=== PATIENT | female | born 1985 | race Caucasian/White ===

== ENCOUNTER 2017-03-05 19:45 | Outpatient (CLI) | payer BC ==
[2017-03-05 20:16] VITALS: BP 108/61; PULSE 67; RESP 18; TEMP 97
--- NOTE | 2017-03-06 08:42 | P.MSEPDOC ---
Presenting Problems - Arrival Data Date of Arrival on Unit: 03/05/17 Time of Arrival on Unit: 19:15 Mode of Transport: Ambulatory - Complaint OB-Reason for Admission/Chief Complaint: Vaginal Bleeding Comment: vaginal bleeding, back pain and cramping Medical History - Information : 3 Para: 2 Term: 2 : 2 Abortions: Spontaneous or Elective: 0 Number of Living Children: 2 - Gestational Age Expected Date of Delivery: 07/19/17 Gestational Age by OM (wks/days): 20 Weeks and 5 Days - History Complications: GDM Review of Systems - Review of Systems Constitutional: No problems Breast: No problems ENT: No problems Cardiovascular: No problems Respiratory: No problems Gastrointestinal: No problems Genitourinary: No problems Musculoskeletal: No problems Neurological: No problems Skin: No problems Vital Signs - Temperature Temperature: 97.0 F Temperature Source: Temporal Artery Scan - Pulse Right Brachial Pulse Rate: 67 Pulse Assessment Method: Automatic Cuff - Respirations Respiratory Rate: 18 Oxygen Delivery Method: Room Air - Blood Pressure Right Arm Blood Pressure: 108/61 Blood Pressure Mean: 76 Blood Pressure Source: Automatic Cuff Medical Screen Scoring (Pre) - Cervical Exam Dilation: Exam Deferred Effacement: Exam Deferred Membranes: Intact - Uterine Contractions Frequency: N/A Duration: N/A Intensity: N/A - Maternal Vital Signs Maternal Temperature: N/A Maternal Blood Pressure: N/A Signs of Preeclampsia: N/A Maternal Respirations: N/A - Maternal Trauma Maternal Trauma: N/A - Assessment Baseline FHR: 140 Position: N/A Station: N/A - Total Score Total Score (Pre): 0 - Level of Risk Level of Risk: Low (0-5) Physician Notification (Pre) - Physician Notified Physician Notified Date: 03/05/17 Physician Notified Time: 19:41 Physician/Practitioner Notifed:: Dr. Zhao Spoke With: Dr. Zhao New Order Received: Yes - Notification Comment Comment: perform speculum exam and cervical exam if 1st exam ok Medical Screen Scoring (Post) - Cervical Exam Dilation: 0 cm = 0 Membranes: Intact - Uterine Contractions Frequency: N/A Duration: N/A Intensity: N/A - Maternal Vital Signs Maternal Temperature: N/A Maternal Blood Pressure: N/A Signs of Preeclampsia: N/A Maternal Respirations: N/A - Maternal Trauma Maternal Trauma: N/A - Assessment Heart Rate: 140 - Total Score Total Score (Post): 0 - Post Treatment Level of Risk Post Treatment Level of Risk: Low (0-5) Physician Notification (Post) - Physician Notified Physician Notified Date: 03/05/17 Physician Notified Time: 19:57 Physician/Practitioner Notified:: Dr. Zhao Spoke With: Dr. Zhao New Order Received: Yes - Notification Comment Comment: discharge home Disposition - Disposition OB Disposition: Discharge to home, Written follow up instructions reviewed Discharge Date: 03/05/17 Discharge Time: 20:10 I agree with the RN Medical Screening Exam: Yes Risk & Benefit of care provided described in d/c instruction: Yes Diagnosis: 20 WEEKS GESTATION OF
== END 2017-03-05 20:10 | disposition home or self-care (01) ==
LOC: FBPOP 19:45
PROVIDERS: ATTEND Obstetrics & Gynecology
DX: O46.92 Antepartum hemorrhage, unspecified, second trimester (principal); Z3A.20 20 weeks gestation of pregnancy
CPT/HCPCS: 99213

== ENCOUNTER 2017-04-18 16:22 | Outpatient (CLI) | payer BC ==
[2017-04-18 16:50] LABS: Glucose,Whole Blood 88 mg/dL (75-99)
[2017-04-18 17:02] VITALS: BP 116/62; PULSE 71; TEMP 96.8
--- NOTE | 2017-04-18 19:19 | P.MSEPDOC ---
Presenting Problems - Arrival Data Date of Arrival on Unit: 04/18/17 Time of Arrival on Unit: 16:25 Mode of Transport: Ambulatory - Complaint OB-Reason for Admission/Chief Complaint: Decreased Movement, Other Comment: pt reports feeling cramping on and off Medical History - Information : 3 Para: 2 Term: 2 : 2 Abortions: Spontaneous or Elective: 0 Number of Living Children: 2 - Gestational Age Gestational Age by MO (wks/days): 26 Weeks and 6 Days - History Complications: GDM Comment: random accu check 88 Review of Systems - Review of Systems Constitutional: No problems Breast: No problems ENT: No problems Cardiovascular: No problems Respiratory: No problems Gastrointestinal: No problems Genitourinary: No problems Musculoskeletal: No problems Neurological: No problems Skin: No problems Vital Signs - Temperature Temperature: 96.8 F Temperature Source: Temporal Artery Scan - Pulse Right Brachial Pulse Rate: 71 Pulse Assessment Method: Automatic Cuff - Respirations Oxygen Delivery Method: Room Air - Blood Pressure Right Arm Blood Pressure: 116/62 Blood Pressure Mean: 80 Blood Pressure Source: Automatic Cuff Medical Screen Scoring (Pre) - Cervical Exam Dilation: Exam Deferred Effacement: Exam Deferred Membranes: Intact - Uterine Contractions Frequency: N/A Duration: N/A Intensity: N/A - Maternal Vital Signs Maternal Temperature: N/A Maternal Blood Pressure: N/A Signs of Preeclampsia: N/A Maternal Respirations: N/A - Maternal Trauma Maternal Trauma: N/A - Assessment Baseline FHR: 135 Heart Rate - NICHD Category: Category I (Normal) = 0 Position: N/A Station: N/A - Total Score Total Score (Pre): 0 - Level of Risk Level of Risk: Low (0-5) Physician Notification (Pre) - Physician Notified Physician Notified Date: 04/18/17 Physician Notified Time: 16:49 Physician/Practitioner Notifed:: Dr clifton Spoke With: Dr clifton New Order Received: Yes (dc pt home) Disposition - Disposition OB Disposition: Discharge to home, Written follow up instructions reviewed Discharge Date: 04/18/17 Discharge Time: 17:02 I agree with the RN Medical Screening Exam: Yes Risk & Benefit of care provided described in d/c instruction: Yes Diagnosis: DECREASED MOVEMENTS, SECOND TRIMESTER, FETUS 1
== END 2017-04-18 17:08 | disposition home or self-care (01) ==
LOC: FBPOP 16:22
PROVIDERS: ATTEND Obstetrics & Gynecology
DX: O36.8121 Decreased fetal movements, second trimester, fetus 1 (principal); Z3A.26 26 weeks gestation of pregnancy
CPT/HCPCS: 99213

== ENCOUNTER 2017-07-15 06:00 | Inpatient (IN) | payer BC ==
--- NOTE | 2017-07-15 06:50 | P.HPOB ---
History of Present Illness H&P Date: 07/15/17 Chief Complaint: Induction of labor secondary to gestational diabetes This patient is a pleasant 31-year-old 3 para 2 female estimated date of confinement 07/19/2017 estimated gestational age 39-3/7 weeks who presents to labor and delivery for induction secondary to diet-controlled gestational diabetes. Patient's been seen by maternal medicine throughout the for glucose regulation which has been very good. She now has a favorable cervix and presents for delivery. care was otherwise complicated by a circumvallate placenta and marginal cord insertion Review of Systems Constitutional: Denies chills, Denies fever Gastrointestinal: Reports heartburn Genitourinary: Reports Menstruation: Reports amenorrhea Past Medical History Additional Past Medical History / Comment(s): Gestational diabetes. History of Any Multi-Drug Resistant Organisms: None Reported Past Surgical History: Cholecystectomy, Orthopedic Surgery Past Anesthesia/Blood Transfusion Reactions: No Reported Reaction Smoking Status: Never smoker Past Alcohol Use History: None Reported Past Drug Use History: None Reported Medications and Allergies Home Medications Medication Instructions Recorded Confirmed Type Pnv,Calcium 72/Iron/Folic Acid 1 tab PO DAILY 03/05/17 05/17/17 History [ Plus Tablet] Allergies Allergy/AdvReac Type Severity Reaction Status Date / Time amoxicillin Allergy Rash/Hives Verified 05/17/17 18:03 Exam - OBG Physical Exam Abdomen: bowel sounds normal, no diffuse tenderness, no bruit present, no guarding noted, no hepatomegaly, no splenomegaly, no mass Vulva: both: normal Cervix: no lesion (Cervix in the office was 2 cm dilated and soft.), no discharge Uterus: normal size Results blood work shows she is O positive, rubella immune, RPR nonreactive, HIV nonreactive, hepatitis B negative, group B strep was negative, ultrasounds have been normal, she's had a level III ultrasound and cardiac echo. Assessment and Plan Assessment: This is a pleasant 31-year-old 3 para 2 female 39-3/7 weeks gestation who is admitted to labor and delivery for induction of labor secondary to gestational diabetes and circumvallate placenta. Plan is induction of labor and anticipate vaginal delivery. (1) Gestational diabetes mellitus (GDM) affecting third Current Visit: Yes Status: Acute Code(s): O24.419 - GESTATIONAL DIABETES MELLITUS IN , UNSP CONTROL; O09.40 - SUPERVISION OF W GRAND MULTIPARITY, UNSP TRIMESTER SNOMED Code(s): 68539522884061 (2) Circumvallate placenta Current Visit: Yes Status: Acute Code(s): O43.119 - CIRCUMVALLATE PLACENTA, UNSPECIFIED TRIMESTER SNOMED Code(s): 2756834
[2017-07-15 06:53] LABS: Glucose,Whole Blood 75 mg/dL (75-99)
[2017-07-15] MEDS ORDERED: OXYTOCIN 10 UNIT/ML 1 ML VIAL IM PRN (06:54)
[2017-07-15] MEDS ORDERED: METHYLERGONOVINE 0.2 MG/ML 1 ML AMP IM PRN (06:54)
[2017-07-15] MEDS ORDERED: CARBOPROST TROMETHAMINE 250 MCG/ML 1 ML AMP IM PRN (06:54)
[2017-07-15] MEDS ORDERED: OXYTOCIN 20 UNITS/1000 ML NS 1,000 ML IV SCH ×2 (06:54→11:20)
[2017-07-15] MEDS ORDERED: TERBUTALINE 1 MG/ML VIAL SQ PRN (06:54)
[2017-07-15] MEDS ORDERED: LIDOCAINE 1% (PF) 10 MG/ML (30 ML SDV) SQ PRN (06:54)
[2017-07-15] MEDS: LACTATED RINGERS 1,000 ML IV SCH ×2 (07:00→09:09)
[2017-07-15 07:20] VITALS: BMI 26.9
[2017-07-15] MEDS ORDERED: BUTORPHANOL 1 MG/ML 1 ML VIAL IV PRN (07:20)
[2017-07-15 07:35] LABS: Basophils % (A) 0 %; Eosinophils % (A) 0 %; HCT 33.5 % (34.0-46.0); HGB 10.9 gm/dL (11.4-16.0); Lymphocytes % (A) 17 %; MCH 29.9 pg (25.0-35.0); MCHC 32.5 g/dL (31.0-37.0); MCV 91.8 fL (80.0-100.0); Mean Platelet Volume 8.3; Monocytes # (A) 0.3 k/uL (0-1.0); Monocytes % (A) 6 %; Neutrophils # (A) 4.5 k/uL (1.3-7.7); Neutrophils % (A) 75 %; Platelet Count 155 k/uL (150-450); RBC 3.64 m/uL (3.80-5.40); RDW 14.8 % (11.5-15.5)
[2017-07-15] MEDS ORDERED: fentaNYL (PF) 50 MCG/ML 5 ML AMP ONE (09:10)
[2017-07-15] MEDS ORDERED: SODIUM CHLORIDE 0.9% 100 ML BAG ONE (09:10)
[2017-07-15] MEDS ORDERED: BUPIVACAINE (PF) 0.25% 30 ML VIAL ONE (09:10)
[2017-07-15] MEDS ORDERED: BUPIVACAINE (PF) 0.25% 25 ML, fentaNYL (PF) 200 MCG in SODIUM CHLORIDE 0.9% 71 ML EPIDURAL ONE (09:27)
[2017-07-15] MEDS ORDERED: Acetaminophen-Codeine 300-30mg TAB PO PRN ×2 (11:20)
[2017-07-15] MEDS ORDERED: SIMETHICONE 80 MG CHEWABLE PO PRN (11:20)
[2017-07-15] MEDS ORDERED: diphenhydrAMINE 50 MG/ML 1 ML VIAL IVP PRN (11:20)
[2017-07-15] MEDS ORDERED: LANOLIN CREAM 5 GM TUBE TOPICAL PRN (11:20)
[2017-07-15] MEDS ORDERED: ZOLPIDEM 5 MG TAB PO PRN (11:20)
[2017-07-15] MEDS ORDERED: BISACODYL 10 MG SUPP RECTAL PRN (11:20)
[2017-07-15] MEDS ORDERED: HYDROCORTISONE 2.5% RECTAL CREAM 30 GM TUBE RECTAL PRN (11:20)
[2017-07-15] MEDS ORDERED: BENZOCAINE/MENTHOL SPRAY 1 GM/SPRAY AEROSOL TOPICAL PRN (11:20)
[2017-07-15] MEDS ORDERED: diphenhydrAMINE 25 MG CAP PO PRN (11:20)
[2017-07-15] MEDS ORDERED: ACETAMINOPHEN TAB 325 MG TAB PO PRN (11:20)
[2017-07-15] MEDS ORDERED: WITCH HAZEL 1 EACH MED..PAD TOPICAL PRN (11:20)
--- NOTE | 2017-07-15 12:32 | P.PROBDLV ---
Vaginal Delivery Note - . Vaginal Delivery Note: Normal vaginal delivery viable male infant Apgars 8 and 9 delivery time is 1111 hrs. Please see dictated H&P for intimate details of this patient's admission. Brief summary this is a pleasant 31-year-old 3 para 2 female 39-3/7 weeks gestation admitted to labor and delivery for induction secondary to gestational diabetes, circumvallate placenta and marginal cord insertion. On admission patient is 2-3 cm dilated is artificial rupture membranes for clear fluid. Labor is induced with Pitocin and a progresses. She does get an epidural for pain control with good relief. Patient's labor progresses quickly and she pushes the head to the perineum. Posterior perineum is supported we have controlled delivery of 's head over the perineum. Mouth and nares are bulb suctioned. There is a double nuchal cord which is loose and reduced. We then have delivery the anterior posterior shoulder with gentle downward traction. This is a vigorous viable male infant Apgars are 8 and 9 delivery time is 1111 hrs. After delivery of the the umbilical cord is doubly clamped and cut appears to be trivascular. The placenta is then spontaneously delivered intact. Does appear to have marginal insertion and circumvallate presentation. Uterus firms up well and estimated blood loss is 150 mL. There is a second-degree midline laceration which is repaired with 3-0 Vicryl usual fashion good reapproximation is noted. Infant and mother are stable in delivery room. All counts are correct 3. There are no complications.
[2017-07-15] MEDS: SENNOSIDES-DOCUSATE SODIUM 1 EACH TAB PO SCH (13:26)
[2017-07-16] MEDS: SENNOSIDES-DOCUSATE SODIUM 1 EACH TAB PO SCH ×3 (01:27→20:06)
[2017-07-16 01:32] VITALS: RESP 16
--- NOTE | 2017-07-16 06:58 | P.PNOBGVD ---
Subjective - Subjective Patient reports: Reports appetite normal, Reports voiding normally, Reports pain well controlled, Reports ambulating normally : doing well Objective - Latest Vital Signs Latest vital signs: Vital Signs Temp Pulse Pulse Resp BP Pulse Ox 07/16/17 00:00 98.5 F 76 16 110/67 97 07/15/17 20:00 98.0 F 78 16 115/69 97 07/15/17 16:00 98.3 F 95 18 114/68 07/15/17 13:45 98.1 F 102 H 18 101/53 07/15/17 13:30 97.7 F 100 18 91/60 07/15/17 13:00 110 H 100/58 07/15/17 12:30 88 18 105/62 07/15/17 12:15 78 111/55 07/15/17 12:00 98.0 F 71 18 102/53 07/15/17 11:45 72 110/55 07/15/17 11:30 98.2 F 78 18 113/57 Intake and Output 07/15/17 07/15/17 07/16/17 14:59 22:59 06:59 Intake Total 12.9 Output Total 550 Balance -537.1 Intake: Intake, IV Titration 12.9 Amount Oxytocin 20 Units/1000 ml 12.9 Ns 1,000 ml @ 1 MILLIUNIT/MIN 3 mls/hr IV .Q24H JOSUE Rx#:[id number] Output: Urine 400 Estimated Blood Loss 150 Other: # Voids 1 1 1 - Exam Lungs: bilateral: normal Chest: Normal S1, Normal S2 Extremities: Present: normal Abdomen: Present: normal appearance, soft Uterus: Present: normal, firm - Labs Labs: Abnormal Lab Results - Last 24 Hours (Table) 07/15/17 Range/Units 07:14 RBC 3.64 L (3.80-5.40) m/uL Hgb 10.9 L (11.4-16.0) gm/dL Hct 33.5 L (34.0-46.0) % Assessment and Plan Assessment: day #1. Patient is resting without complaints. Vital signs are stable she is afebrile. Uterus is firm nontender she's having normal lochia. My impression is a normal course. Plan is to continue routine care and most likely discharge home tomorrow. (1) Gestational diabetes mellitus (GDM) affecting third Current Visit: Yes Status: Acute Code(s): O24.419 - GESTATIONAL DIABETES MELLITUS IN , UNSP CONTROL; O09.40 - SUPERVISION OF W GRAND MULTIPARITY, UNSP TRIMESTER SNOMED Code(s): 72580936363366 (2) Circumvallate placenta Current Visit: Yes Status: Acute Code(s): O43.119 - CIRCUMVALLATE PLACENTA, UNSPECIFIED TRIMESTER SNOMED Code(s): 4369945
[2017-07-16] MEDS: IBUPROFEN 600 MG TAB PO PRN (15:54)
--- NOTE | 2017-07-16 17:08 | P.PN ---
Progress Note - Text Progress Note Date: 07/16/17 I was called about pt in regards to some shortness of breath. First noticed this morning, however when I came to see her at lunchtime was talking on the phone in no apparent distress. Has had on/off since, noticed more apparently with exertion. I came to see pt. Lungs are clear. Blood pressure excellent and no tachycardia. Pulse ox is 100% at rest and with exertion. Pt appears in no distress and breathing does not appear labored. I do not think she has any evidence of significant cardio/pulmonary compromise. No evidence of PE/DVT. Will continue to observe and do further testing/consultation if necessary.
[2017-07-17] MEDS: IBUPROFEN 600 MG TAB PO PRN ×2 (04:32→15:22)
--- NOTE | 2017-07-17 06:22 | P.PNOBGVD ---
Subjective - Subjective Patient reports: Reports appetite normal, Reports voiding normally, Reports pain well controlled, Reports ambulating normally [place]: doing well Objective - Latest Vital Signs Latest vital signs: Vital Signs Temp Pulse Pulse Resp BP Pulse Ox 07/17/17 00:00 98.1 F 58 L 16 105/60 07/16/17 16:00 98.0 F 78 16 117/77 100 07/16/17 08:00 98.2 F 83 16 107/66 Intake and Output 07/16/17 07/16/17 07/17/17 14:59 22:59 06:59 Other: # Voids 1 1 1 - Exam Lungs: bilateral: normal Chest: Normal S1, Normal S2 Extremities: Present: normal Abdomen: Present: normal appearance, soft Uterus: Present: normal, firm Assessment and Plan Assessment: Patient is resting without new complaints. She states that the chest discomfort she had yesterday is gone. Vital signs are stable she's afebrile. Uterus is firm nontender she's having normal lochia. My impression is normal course. Plan is to continue routine care and discharge home later today. (1) Gestational diabetes mellitus (GDM) affecting third Current Visit: Yes Status: Acute Code(s): O24.419 - GESTATIONAL DIABETES MELLITUS IN , UNSP CONTROL; O09.40 - SUPERVISION OF W GRAND MULTIPARITY, UNSP TRIMESTER SNOMED Code(s): 82502440898951 (2) Circumvallate placenta Current Visit: Yes Status: Acute Code(s): O43.119 - CIRCUMVALLATE PLACENTA, UNSPECIFIED TRIMESTER SNOMED Code(s): 1342766
--- NOTE | 2017-07-17 06:25 | P.DS ---
Providers Date of admission: 07/15/17 06:23 Expected date of discharge: 07/17/17 Attending physician: Pancho Taylor Primary care physician: Kendall Phoenix - Discharge Diagnosis(es) (1) Gestational diabetes mellitus (GDM) affecting third Current Visit: Yes Status: Acute (2) Circumvallate placenta Current Visit: Yes Status: Acute Hospital Course: Please see dictated H&P for intimate details of this patient's admission. Brief summary this is a pleasant 31-year-old 3 para 2 female 39-3/7 weeks gestation admitted to labor and delivery for induction of labor secondary to gestational diabetes. Patient undergoes uncomplicated induction of labor quickly goes on to have a vaginal delivery viable male . Procedures: Induction of labor and normal vaginal delivery. Patient Condition at Discharge: Good Plan - Discharge Summary New Discharge Prescriptions: New Acetaminophen-Codeine 300-30mg [Tylenol w/codeine #3] 1 each PO Q4HR PRN #20 tab PRN Reason: Mild Pain exceeding Tylenol Ibuprofen [Motrin] 600 mg PO Q6HR PRN #40 tab PRN Reason: Mild Pain Or Fever >= 100.5 No Action Pnv,Calcium 72/Iron/Folic Acid [ Plus Tablet] 1 tab PO DAILY Discharge Medication List Pnv,Calcium 72/Iron/Folic Acid [ Plus Tablet] 1 tab PO DAILY 03/05/17 [ History] Acetaminophen-Codeine 300-30mg [Tylenol w/codeine #3] 1 each PO Q4HR PRN #20 tab 07/16/17 [Rx] Ibuprofen [Motrin] 600 mg PO Q6HR PRN #40 tab 07/16/17 [Rx] Follow up Appointment(s)/Referral(s): Pancho Taylor MD [STAFF PHYSICIAN] - 08/22/17 10:45 am Patient Instructions/Handouts: Vaginal Delivery (DC) Activity/Diet/Wound Care/Special Instructions: No intercourse or anything per vagina for 6 weeks. Please call if any fever, chills, excessive vaginal bleeding, and/or abdominal pain. Discharge Disposition: HOME SELF-CARE
[2017-07-17] MEDS: SENNOSIDES-DOCUSATE SODIUM 1 EACH TAB PO SCH (07:58)
[2017-07-17 16:48] VITALS: BP 115/65; PULSE 62; TEMP 97.2
== END 2017-07-17 17:00 | disposition home or self-care (01) | DRG 775 ==
LOC: 4FBP 06:23
PROVIDERS: ADMIT Obstetrics & Gynecology; ATTEND Obstetrics & Gynecology
PROC: 10907ZC Drainage of Amniotic Fluid, Therapeutic from Products of Conception, Via Natural or Artificial Opening (ICD-10-PCS; principal; 2017-07-15)
PROC: 10E0XZZ Delivery of Products of Conception, External Approach (ICD-10-PCS; principal; 2017-07-15)
PROC: 3E0R3BZ Introduction of Anesthetic Agent into Spinal Canal, Percutaneous Approach (ICD-10-PCS; principal; 2017-07-15)
PROC: 3E033VJ Introduction of Other Hormone into Peripheral Vein, Percutaneous Approach (ICD-10-PCS; principal; 2017-07-15)
PROC: 00HU33Z Insertion of Infusion Device into Spinal Canal, Percutaneous Approach (ICD-10-PCS; principal; 2017-07-15)
PROC: 0KQM0ZZ Repair Perineum Muscle, Open Approach (ICD-10-PCS; principal; 2017-07-15)
DX: O24.420 Gestational diabetes mellitus in childbirth, diet controlled (principal); O43.113 Circumvallate placenta, third trimester; Z37.0 Single live birth; O69.81X0 Labor and delivery complicated by cord around neck, without compression, not applicable or unspecified; O70.1 Second degree perineal laceration during delivery; Z3A.39 39 weeks gestation of pregnancy; Z88.1 Allergy status to other antibiotic agents
CPT/HCPCS: 85025; 88307

== ENCOUNTER → 2017-12-04 | Outpatient (CLI) | payer BC | END | disposition home or self-care (01) | LOC: LABWHC1 15:39 | PROVIDERS: ATTEND Otolaryngology | DX: J30.89 Other allergic rhinitis (principal) | CPT/HCPCS: 36415 ==

== ENCOUNTER 2019-05-30 15:13 | Emergency (ER) | payer BC ==
--- NOTE | 2019-05-30 15:45 | ED ---
Chest Pain HPI - General Chief Complaint: Chest Pain Stated Complaint: Chest pain Time Seen by Provider: 05/30/19 15:17 Source: patient Mode of arrival: wheelchair Limitations: no limitations - History of Present Illness Initial Comments: 33-year-old female presenting today for chief complaint of "I feel like I'm about to ". Patient states that she has struggled anxiety and has been on and off the medications are entire life. Patient states has been increasing for the past few months due to school, 4 children and other life stressors. Patient states that for the past 10 days she has had chest pain she states that sometimes is sharp sometimes it is a pressure. She denies any ripping tearing pain or back pain patient states that today she began to feel like she was having an anxiety attack she said she felt she was with her and felt as best she came to the emergency department for evaluation. Patient denies any epigastric pain jaw pain and arm pain nausea vomiting. Patient denies any syncopal episodes she denies any leg swelling history DVT history of cancer recent surgical procedures or fractures. No history of fever or IV drug use denies cough but states she has been very congested. She states that at times she has felt lightheaded she is not sure if this is due to congestion or not. Remaining review of systems negative upon arrival patient appears well however she is tearful - Related Data Home Medications Medication Instructions Recorded Confirmed Pnv,Calcium 72/Iron/Folic Acid 1 tab PO DAILY 03/05/17 07/15/17 [ Plus Tablet] Previous Rx's Medication Instructions Recorded Acetaminophen-Codeine 300-30mg 1 each PO Q4HR PRN #20 tab 07/16/17 [Tylenol w/codeine #3] Ibuprofen [Motrin] 600 mg PO Q6HR PRN #40 tab 07/16/17 ALPRAZolam [Xanax] 0.25 mg PO DAILY PRN 5 Days #5 tab 05/30/19 Allergies Allergy/AdvReac Type Severity Reaction Status Date / Time amoxicillin Allergy Rash/Hives Verified 05/30/19 15:17 Review of Systems ROS Statement: Those systems with pertinent positive or pertinent negative responses have been documented in the HPI. ROS Other: All systems not noted in ROS Statement are negative. EKG Findings - EKG Comments: EKG Findings:: Ventricular rate 8 63 bpm, CA interval 156 ms, QRS duration 88 ms, QT/QTC 410/419 ms. Normal sinus rhythm with a sinus arrhythmia. No ST elevation or depression. Normal R-wave progression Past Medical History Past Medical History: No Reported History Additional Past Medical History / Comment(s): Gestational diabetes. History of Any Multi-Drug Resistant Organisms: None Reported Past Surgical History: Cholecystectomy, Orthopedic Surgery Past Anesthesia/Blood Transfusion Reactions: No Reported Reaction Past Psychological History: Depression Smoking Status: Never smoker Past Alcohol Use History: None Reported Past Drug Use History: None Reported - Past Family History Mother Family Medical History: Thyroid Disorder Additional Family Medical History / Comment(s): lupus General Exam - General Exam Comments Initial Comments: General: The patient is awake and alert, and does not appear acutely ill. Eye: +3 mm pupils are equal, round and reactive to light, extra-ocular movements are intact. No nystagmus. There is normal conjunctiva bilaterally. No signs of icterus. Ears, nose, mouth and throat: There are moist mucous membranes and no oral lesions. Pharynx nonerythematous uvula midline. Neck: The neck is supple, there is no tenderness or JVD. Cardiovascular: There is a regular rate and rhythm. No murmur, rub or gallop is appreciated. Respiratory: Lungs are clear to auscultation, respirations are non-labored, breath sounds are equal. No wheezes, stridor, rales, or rhonchi. Gastrointestinal: Soft, non-distended, non-tender abdomen without masses or organomegaly noted. There is no rebound or guarding present. Musculoskeletal: Normal ROM, no tenderness. Strength 5/5. Sensation intact. Pulses equal bilaterally 2+. Neurological: A&O x 3. CN II-XII intact grossly, There are no obvious motor or sensory deficits. Coordination appears grossly intact. Speech is normal. Skin: Skin is warm and dry and no rashes or lesions are noted. No lower extremity edema Psychiatric: Cooperative, tearful Limitations: no limitations Course Vital Signs 05/30/19 05/30/19 05/30/19 15:14 15:28 16:17 Temperature 98.1 F Pulse Rate 83 71 Respiratory 18 16 18 Rate Blood Pressure 127/81 115/71 O2 Sat by Pulse 98 99 Oximetry Chest Pain MDM - [facility] 33-year-old female presented for atypical chest pain. Patient has a lot of life stressors history of anxiety felt like she was having a panic attack EKG no acute findings. Troponin negative symptoms ongoing for 10 days which she would expect an elevation in this timeframe with symptoms. Patient's dimer negative. Chest x-ray clear. Patient afebrile vital signs stable symptoms resolved with Ativan she states she believes this was a panic attack. Patient brought out side perception for Xanax when necessary needed for anxiety. She states she'll make a primary care appointment for further management. Discussed case with Dr. Cohn at this time are agreeable discharge and outpatient follow-up patient denied any suicidal or homicidal ideation. Disposition Clinical Impression: Panic attack, Anxiety, Atypical chest pain Disposition: HOME SELF-CARE Condition: Good Instructions (If sedation given, give patient instructions): Chest Pain (ED) Additional Instructions: Please use medication as discussed. Please follow-up with family doctor in the next 2 days. Please return to emergency room if the symptoms increase or worsen or for any other concerns. Prescriptions: ALPRAZolam [Xanax] 0.25 mg PO DAILY PRN 5 Days #5 tab PRN Reason: Anxiety Is patient prescribed a controlled substance at d/c from ED?: No Referrals: Gus Wilkes MD [Primary Care Provider] - 1-2 days Time of Disposition: 16:29
[2019-05-30 15:50] LABS: Basophils # (A) 0.1 k/uL (0-0.2); Basophils % (A) 3 %; Eosinophils # (A) 0.1 k/uL (0-0.7); Eosinophils % (A) 1 %; HCT 39.9 % (34.0-46.0); HGB 13.1 gm/dL (11.4-16.0); Lymphocytes % (A) 34 %; MCH 29.2 pg (25.0-35.0); MCV 88.6 fL (80.0-100.0); Mean Platelet Volume 6.5; Monocytes # (A) 0.3 k/uL (0-1.0); Monocytes % (A) 5 %; Neutrophils # (A) 3.2 k/uL (1.3-7.7); Neutrophils % (A) 55 %; Platelet Count 244 k/uL (150-450); RDW 12.8 % (11.5-15.5); WBC 5.7 k/uL (3.8-10.6)
[2019-05-30] MEDS ORDERED: LORazepam 2 MG/ML INJ IV STA (15:58)
[2019-05-30 16:00] LABS: ALT 21 U/L (9-52); AST 22 U/L (14-36); African American GFR (CKD) >90 (>60 ml/min/1.73 sqM); Albumin 4.8 g/dL (3.5-5.0); Alkaline Phosphatase 49 U/L (38-126); Anion Gap 9 mmol/L; Blood Urea Nitrogen 15 mg/dL (7-17); Calcium 9.7 mg/dL (8.4-10.2); Carbon Dioxide 27 mmol/L (22-30); Chloride 105 mmol/L (98-107); Glucose 106 mg/dL (74-99); Non-African American GFR(CKD) >90 (>60 ml/min/1.73 sqM); Potassium 3.9 mmol/L (3.5-5.1); Sodium 141 mmol/L (137-145); Total Bilirubin 0.2 mg/dL (0.2-1.3); Total Protein 8.2 g/dL (6.3-8.2)
--- NOTE | 2019-05-30 16:12 | XR ---
EXAMINATION TYPE: XR chest 2V DATE OF EXAM: 05/30/2019 COMPARISON: None HISTORY: 33-year-old female with chest pain TECHNIQUE: PA and lateral views FINDINGS: The cardiomediastinal silhouette, aorta, and pulmonary vasculature are within normal limits. Lungs an d pleural spaces are clear. IMPRESSION: No acute cardiopulmonary process.
[2019-05-30 16:14] LABS: D-Dimer 0.21 mg/L FEU (<0.60); Partial Thromboplastin Time 24.8 sec (22.0-30.0); Prothrombin Time 10.5 sec (9.0-12.0)
[2019-05-30 16:18] VITALS: RESP 18
[2019-05-30 17:22] VITALS: BP 106/58; PULSE 73; TEMP 97.9
== END 2019-05-30 17:20 | disposition home or self-care (01) ==
LOC: EC 15:13
DX: F41.0 Panic disorder [episodic paroxysmal anxiety] (principal); Z88.0 Allergy status to penicillin
CPT/HCPCS: 36415; 93005; 85379; 80053; 83690; 83735; 84484; 85025; 85610; 85730; 71046; 99285; 96374; J2060

== ENCOUNTER 2023-07-29 06:10 | Day surgery (SDC) | payer BC ==
--- NOTE | 2023-07-28 19:43 | P.HPOB ---
History of Present Illness H&P Date: 07/28/23 Chief Complaint: complex right ovarian cyst 37 year old presents for laparoscopic removal of persistent right complex ovarian cyst using da galindo. This cyst has been causing pain for several months. Review of Systems All systems: negative Constitutional: Denies chills, Denies fever Eyes: denies blurred vision, denies pain Ears, nose, mouth and throat: Denies headache, Denies sore throat Cardiovascular: Denies chest pain, Denies shortness of breath Respiratory: Denies cough Gastrointestinal: Denies abdominal pain, Denies diarrhea, Denies nausea, Denies vomiting Genitourinary: Denies dysuria, Denies hematuria Musculoskeletal: Denies myalgias Integumentary: Denies pruritus, Denies rash Neurological: Denies numbness, Denies weakness Psychiatric: Denies anxiety, Denies depression Endocrine: Denies fatigue, Denies weight change Past Medical History Past Medical History: No Reported History Additional Past Medical History / Comment(s): Gestational diabetes.,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 History of Any Multi-Drug Resistant Organisms: None Reported Past Surgical History: Cholecystectomy Additional Past Surgical History / Comment(s): colonoscopy, cyst removed behind knee, Past Anesthesia/Blood Transfusion Reactions: No Reported Reaction Smoking Status: Never smoker - Past Family History Mother Family Medical History: Thyroid Disorder Additional Family Medical History / Comment(s): lupus Medications and Allergies Home Medications Medication Instructions Recorded Confirmed Type Hydroxychloroquine Sulfate 300 mg PO DAILY 07/19/23 07/19/23 History fluvoxaMINE MALEATE [Luvox CR] 1 tab PO DAILY 07/19/23 07/19/23 History Allergies Allergy/AdvReac Type Severity Reaction Status Date / Time amoxicillin Allergy Rash/Hives Verified 07/19/23 15:25 Exam Osteopathic Statement: *. No significant issues noted on an osteopathic structural exam other than those noted in the History and Physical/Consult. HEart: RRR Lungs: CTAB Abdomen: soft, nontender Extremeties: neg nan's Assessment and Plan (1) Complex cyst of right ovary Status: Acute Code(s): N83.291 - OTHER OVARIAN CYST, RIGHT SIDE SNOMED Code(s): 87282017169309682 (2) Pelvic pain Status: Acute Code(s): R10.2 - PELVIC AND PERINEAL PAIN SNOMED Code(s): 03097625 Plan: 1. laparoscopic removal of right complex ovarian cyst using da galindo. possible laparotomy, possible salpingo-oopherectomy
[~2023-07-29 06:10] MED LIST: Pre Op ABX Message 1 EACH MISC MISCELLANE ONE
[2023-07-29] MEDS ORDERED: DEXAMETHASONE SOD PHOSPHATE 4 MG/ML 1 ML VIAL IV ONE (06:17)
[2023-07-29] MEDS ORDERED: SCOPOLAMINE 1 MG/72 HR PATCH TRANSDERM ONE (06:17)
[2023-07-29] MEDS ORDERED: ONDANSETRON 4 MG/2 ML VIAL IVP ONE ×2 (06:17→06:56)
[2023-07-29] MEDS ORDERED: LACTATED RINGERS 1,000 ML IV SCH (06:17)
[2023-07-29 06:52] VITALS: RESP 16
[2023-07-29] MEDS ORDERED: DEXAMETHASONE SOD PHOSPHATE 4 MG/ML 1 ML VIAL IVP ONE (06:57)
[2023-07-29] MEDS ORDERED: HYDROmorphone 0.5 MG/0.5 ML SYRINGE IVP PRN (07:00)
[2023-07-29] MEDS ORDERED: MIDAZOLAM 2 MG/2 ML VIAL IV PRN (07:00)
[2023-07-29] MEDS ORDERED: PROPOFOL 10 MG/ML 20 ML VIAL IV ONE (07:21)
[2023-07-29] MEDS ORDERED: ROCURONIUM 10 MG/ML (5 ML VIAL) IV ONE (07:21)
[2023-07-29] MEDS ORDERED: SUCCINYLCHOLINE CHLORIDE 200 MG/10 ML VIAL IV ONE (07:21)
[2023-07-29] MEDS ORDERED: MIDAZOLAM 2 MG/2 ML VIAL ONE (07:21)
[2023-07-29] MEDS ORDERED: KETOROLAC 15 MG/ML 1 ML VIAL ONE (07:21)
[2023-07-29] MEDS ORDERED: GLYCOPYRROLATE 0.2 MG/ML 2 ML VIAL ONE (07:21)
[2023-07-29] MEDS ORDERED: NEOSTIGMINE 1 MG/ML 10 ML VIAL ONE (07:21)
[2023-07-29] MEDS ORDERED: fentaNYL (PF) 50 MCG/ML 2 ML AMP ONE (07:21)
[2023-07-29] MEDS ORDERED: LIDOCAINE 1% INJ 10MG/ML (20 ML MDV) ONE (07:21)
[2023-07-29] MEDS ORDERED: BUPIVACAINE (PF) 0.25% 30 ML VIAL SQ ONE (07:57)
--- NOTE | 2023-07-29 08:23 | P.OP ---
Date of Procedure: 07/29/23 Preoperative Diagnosis: 1. complex right ovarian cyst Postoperative Diagnosis: 1. complex right ovarian cyst Procedure(s) Performed: laparoscopic right ovarian cystectomy using da rosana Anesthesia: FABIAN Surgeon: Michelle Zhao Estimated Blood Loss (ml): 2 IV fluids (ml): 600 Urine output (ml): 50 Pathology: other (right ovarian cyst wall) Condition: stable Disposition: PACU Operative Findings: normal uterus, tubes and ovaries. serous cyst with daughter cyst on right ovary Description of Procedure: Patient taken the operating room where general anesthesia was obtained without difficulty. She is prepped and draped in normal sterile fashion dorsal lithotomy position, legs placed in the Mitchell stirrups. Weighted speculum placed in the vagina and the anterior lip the cervix was grasped with single-tooth tenaculum. The uterus sounded to 9 cm kroner manipulator was then placed in the uterus. Bladder was drained of all urine. Attention was then turned to the abdomen and gloves were changed. A 5 mm supraumbilical incision was made the scalpel and a 5 mm optical trocar was placed under direct visualization. 10 cm to the right of this and 2 cm down a 5 mm incision was made and 8 mm da Rosana port was placed under direct visualization. Same measurements on the opposite side of the patient's abdomen, the 5 mm incision was made and 8 mm da Rosana port was placed under direct visualization. In the left upper quadrant a 10 mm incision was made and a 10 mm optical trocar was placed under direct visualization. The 5 mm optical trocar was then replaced with the 8 mm da Rosana camera port. The robot was docked on patient's right side. The camera was introduced and then the monopolar curved scissor and [place] bipolar placed under direct visualization. I broke scrub and went to the physician console. Survey of the pelvis revealed normal uterus, tubes, ovaries. The right ovary was enlarged. The ovary was grasped and a linear incision was made using the monopolar curved scissors. Serous fluid drained from this ovary a smaller cyst was noted to be within that cyst which was also drained and found to have serous fluid. The cyst wall was grasped and shelled out. This cyst wall was then removed from the retail assistant port. Hemostasis was ensured and the ovary was tucked back behind the uterus. All instruments were then removed from the abdomen and pelvis. The abdominal incisions were closed with 4-0 Vicryl in a subcuticular fashion. Patient tolerated the procedure well, sponge and instrument counts correct 2 and she was taken to recovery room in stable condition condition
[2023-07-29 08:31] VITALS: TEMP 97.4
[2023-07-29 09:21] VITALS: BP 115/77; PULSE 69
== END 2023-07-29 09:32 | disposition home or self-care (01) ==
LOC: OR 06:10
PROVIDERS: ATTEND Obstetrics & Gynecology
DX: N83.291 Other ovarian cyst, right side (principal); F32.A Depression, unspecified; K21.9 Gastro-esophageal reflux disease without esophagitis; Z79.899 Other long term (current) drug therapy; Z88.0 Allergy status to penicillin; Z79.01 Long term (current) use of anticoagulants
CPT/HCPCS: 81025; 88307; 58662; J2250; J0330; J1100; J2710; J2405; J2001; J3010; J1885; J2704; J0665